=== PATIENT | male | born 1995 | race Caucasian/White ===

== ENCOUNTER 2020-09-24 14:01 | Outpatient (CLI) | payer OTHER, SELFPAY | END 2020-09-24 14:02 | disposition home or self-care (01) | LOC: ANHCOVIDVC 14:01 | PROVIDERS: PCP Family Medicine | DX: Z23 Encounter for immunization (principal) | CPT/HCPCS: 0001A; 91300 ==

== ENCOUNTER 2020-10-15 14:56 | Outpatient (CLI) | payer OTHER, SELFPAY | END 2020-10-15 14:57 | disposition home or self-care (01) | LOC: ANHCOVIDVC 14:57 | PROVIDERS: PCP Family Medicine | DX: Z23 Encounter for immunization (principal) | CPT/HCPCS: 0002A; 91300 ==

== ENCOUNTER 2021-05-15 21:20 | Emergency (ER) | payer BC, SELFPAY ==
--- NOTE | 2021-05-15 21:49 | PC.NURSE ---
Pt walked out after hearing there will be increased wait times. Pt A&Ox4.
== END 2021-05-16 02:38 | disposition left against medical advice (07) ==
PROVIDERS: PCP Family Medicine
DX: Z53.21 Procedure and treatment not carried out due to patient leaving prior to being seen by health care provider (principal)
CPT/HCPCS: 99199

== ENCOUNTER 2021-05-16 08:03 | Emergency (ER) | payer BC, SELFPAY ==
[2021-05-16 08:14] VITALS: BP 145/80; PULSE 89; RESP 16; TEMP 37.2; O2SAT 99
--- NOTE | 2021-05-16 08:23 | ED.GENADULT ---
HPI - General Adult General Chief complaint: Ear Stated complaint: ear pain Source: patient Mode of arrival: ambulatory Limitations: no limitations History of Present Illness HPI narrative: Patient is a 25-year-old male who presents to the [facility] via POV for evaluation of a right ear problem that began 1 day ago. Additionally, he reports pain and decreased hearing. Symptoms began after cleaning my ears . Ibuprofen provides minimal relief. No relief with Debrox. Nothing worsens symptoms. Related Data Allergies Allergy/AdvReac Type Severity Reaction Status Date / Time Cephalosporins Allergy Mild QUESTIONABLE Verified 05/16/21 08:19 MILD RASH cephalexin Allergy Unknown Unknown Verified 05/16/21 08:19 clindamycin Allergy Unknown Unknown Verified 05/16/21 08:19 Review of Systems Review of Systems: Pertinent negatives fever, chills, sweats, change in appetite, poor p.o. intake, malaise, headache, rhinorrhea, sinus problems, tinnitus, vertigo, lightheadedness, hearing loss, ear drainage, nausea, vomiting, sore throat, cough, shortness of breath, lymphadenopathy, chest pain, heart palpitations, and heart murmur. PMFSH Past Medical History Medical History BMI 32.0-32.9,adult Family History Family History Father Hyperlipidemia Hernia Mother No problems noted. Sibling No problems noted. Social History Social History Second hand tobacco smoke exposure: No Alcohol intake: current Substance use: current Substance use type: marijuana Additional occupation/education comments: IT support Gender identity (if verbalized by the patient): Male Comments I have reviewed and agree with the patient's past medical, surgical, social, and family hx as documented by the RN. There is no relevant family history pertinent to the presenting complaint. Exam Narrative: GENERAL: Well-appearing, well-nourished, and in no acute distress. HEAD: Normocephalic, atraumatic. No sinus tenderness or facial swelling appreciated. EYES: PERRLA and EOMI. No evidence of erythema, swelling, or drainage. ENT: Moderate cerumen impactions noted to bilateral ear canals. Post bilateral ear irrigation: Right ear canal patent and marked erythema noted to right TM. Left ear canal patent. Left TM normal. No TM perforation. Nares clear, no rhinorrhea or epistaxis. Bilateral turbinates without erythema/ swelling. Mucous membranes moist and pink. Uvula is midline without erythema and swelling. No evidence of petechial rash, cobblestoning, lesions, ulcers, erythema, swelling, exudates, peritonsillar abscess, tenting, or drooling. Breath odor and voice normal. NECK: Supple. No Lymphadenopathy or nuchal rigidity appreciated. CHEST: Bilateral lung lucero are clear to auscultation. No respiratory distress. No evidence of cough or pleuritic cp upon examination. HEART: Regular rate and rhythm. No murmur, gallop, or rub heard. EXTREMITIES: Normal range of motion. No edema. SKIN: Warm, dry, no rash. NEURO: No focal deficits. Alert and oriented x3. Course Vital Signs Vital signs: Vital Signs Temperature 99.0 F 05/16/21 08:14 Pulse Rate 89 05/16/21 08:14 Respiratory Rate 16 05/16/21 08:14 Blood Pressure 145/80 H 05/16/21 08:14 Pulse Oximetry 99 05/16/21 08:14 Temperature 99.0 F 05/16/21 08:14 Pulse Rate 89 05/16/21 08:14 Respiratory Rate 16 05/16/21 08:14 Blood Pressure 145/80 H 05/16/21 08:14 Pulse Oximetry 99 05/16/21 08:14 Due to an elevated blood pressure, I had a detailed discussion with the patient and/or guardian regarding the need for follow-up with their primary care provider within the next 3-4 days. Patient verbalized understanding and agreed. Procedure
== END 2021-05-16 09:00 | disposition home or self-care (01) ==
PROVIDERS: Emergency Provider Nurse Practitioner Family
DX: H66.91 Otitis media, unspecified, right ear (principal); H61.23 Impacted cerumen, bilateral
CPT/HCPCS: 69210; 99213; G0463

== ENCOUNTER 2022-02-05 10:42 | Emergency (ER) | payer BC, SELFPAY ==
--- NOTE | 2022-02-05 10:53 | PC.NURSE ---
per mom, patient needs to leave because they need to be seen so patient can get to work. pt seen ambulating with steady gait and in no distress.
== END 2022-02-05 10:53 | disposition left against medical advice (07) ==
LOC: ANHED 11:01
DX: Z53.21 Procedure and treatment not carried out due to patient leaving prior to being seen by health care provider (principal)
CPT/HCPCS: 99199

== ENCOUNTER 2022-09-24 09:11 | Emergency (ER) | payer BC, SELFPAY ==
[2022-09-24 09:21] VITALS: BP 140/88; PULSE 95; RESP 16; TEMP 37.7; O2SAT 100
--- NOTE | 2022-09-24 09:22 | ED.EYEPROB ---
HPI - Eye Problem General Chief complaint: Eye Problems Stated complaint: Eyes Irritation Time Seen by Provider: 09/24/22 09:22 Source: patient, RN notes reviewed and old records reviewed Mode of arrival: ambulatory Limitations: no limitations History of Present Illness HPI Narrative: 27-year-old male presents to the [facility] with bilateral eye irritation for 6 days a swollen well as a rash after shaving his bilateral arms. Patient states it started when he was in a tingling. Was seen in urgent care there and prescribed allergy medication and some type of eye ointment which is not helping. Does not were contact lenses. States that the rash on his arms burn occasionally. Onset (ago): day(s) (6) Related Data Allergies Allergy/AdvReac Type Severity Reaction Status Date / Time Cephalosporins Allergy Mild QUESTIONABLE Verified 09/24/22 09:13 MILD RASH cephalexin Allergy Unknown Unknown Verified 09/24/22 09:13 clindamycin Allergy Unknown Unknown Verified 09/24/22 09:13 amoxicillin [From Amoxil] Allergy Other Verified 09/24/22 09:28 Penicillins Allergy Other Verified 09/24/22 09:28 Review of Systems Review of Systems: All systems reviewed & are unremarkable except as noted in HPI and below Constitutional: Constitutional: Reports no additional constitutional complaints Eyes: Eyes: Reports as per HPI ENT: Reports system reviewed and no additional complaints, except as documented Cardiovascular: Cardiovascular: Reports no additional cardiovascular complaints, Denies chest pain and Denies dyspnea Respiratory: Respiratory: Reports no additional respiratory complaints, Denies chest congestion, Denies cough and Denies dyspnea Gastrointestinal: Gastrointestinal: Reports no additional gastrointestinal complaints, Denies abdominal pain, Denies nausea and Denies vomiting Musculoskeletal: Musculoskeletal: Reports no additional musculoskeletal complaints Integumentary/Breasts: Skin/Breast: Reports as per HPI Neurologic: Reports system reviewed and no additional complaints, except as documented Psychiatric: Psychiatric: Reports no additional psychiatric complaints Allergic/Immunologic: Allergic/Immunologic: Reports no additional allergic/immunologic complaints [facility] Past Medical History Medical History BMI 32.0-32.9,adult Family History Family History Father Hyperlipidemia Hernia Mother No problems noted. Sibling No problems noted. Social History Social History (Reviewed 09/24/22 @ 18:56 by [employer] Smoking status: Never smoker Second hand tobacco smoke exposure: No Alcohol intake: current Substance use: current Substance use type: marijuana Living arrangements: with family Occupation/Education: occupation Additional occupation/education comments: IT support Gender identity (if verbalized by the patient): Male Comments At the time of my signature, I reviewed and agree with the nursing past medical, surgical, social, and family history. There is no relevant family history pertinent to the patient complaint. Exam Const: General: cooperative, healthy appearing, comfortable, no acute distress, well developed, alert and well nourished Nutritional Appearance: well nourished Orientation/consciousness: patient oriented x3 Limitations: no limitations HENMT: Head: normal to inspection Ears: hearing grossly normal bilaterally and external ears normal Face/Nose/Sinus: Normal external nose present, Normal nares present, Normal nasal mucous membranes and turbinates present and normal facial exam Face and sinus: normal facial exam Mouth: Yes Normal oral and palatal mucosa present, Yes lip normal and Yes moist mucous membranes Throat: posterior oropharynx normal and uvula midline Eyes: General: appearance normal, both eyes and all related structures Visual Day: normal
== END 2022-09-24 09:35 | disposition home or self-care (01) ==
PROVIDERS: Emergency Provider Nurse Practitioner; PCP Family Medicine
DX: H10.33 Unspecified acute conjunctivitis, bilateral (principal); L73.9 Follicular disorder, unspecified; F12.90 Cannabis use, unspecified, uncomplicated
CPT/HCPCS: 99213; G0463